=== PATIENT | male | born 2000 | race Caucasian/White ===

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

== ENCOUNTER 2022-02-21 14:58 | Outpatient (CLI) | payer BC | END 2022-02-21 14:59 | disposition home or self-care (01) | LOC: RAD-FRANK 14:58 | PROVIDERS: ATTEND Nurse Practitioner Family | DX: M79.604 Pain in right leg (principal) ==